=== PATIENT | male | born 1995 | race Hispanic/Latino ===

== ENCOUNTER 2019-10-22 09:33 | Outpatient (CLI) | payer OTHER ==
--- NOTE | 2019-10-22 09:49 | RAD ---
EXAM: 3 views of the right hand COMPARISON: None HISTORY: Hand pain FINDINGS: 3 views of the hand shows no evidence of acute fracture or dislocation. No degenerative han nges are seen. No soft tissue swelling is present. IMPRESSION: Unremarkable exam.
== END 2019-10-22 09:34 | disposition home or self-care (01) ==
LOC: BICRAD 09:33
PROVIDERS: ATTEND Internal Medicine
DX: M79.641 Pain in right hand (principal)